=== PATIENT | male | born 1955 | race Caucasian/White ===

== ENCOUNTER 2021-01-13 19:56 | Inpatient (IN) | payer MEDICARE, OTHER ==
[2021-01-13 20:52] LABS: #Basophils 0.2 10x3/uL (0.0-0.2); #Eosinphils 0.4 10x3/uL (0.0-0.5); #Monocytes 0.9 10x3/uL (0.0-1.1); #Neutrophils 5.7 10x3/uL (1.5-8.4); %Basophils 1.6 % (0.0-2.0); %Eosinophils 3.2 % (0.0-6.0); %Monocytes 8.7 % (0.0-10.0); %Neutrophils 53.2 % (40.0-75.0); Hemoglobin 15.5 g/dL (13.5-17.5); Mean Corpuscular HGB CONC 32.3 g/dL (32.0-36.0); Mean Corpuscular Hemoglobin 30.5 pg (27.0-33.0); Mean Corpuscular Volume 94.5 fl (81.2-95.1); Mean Platelet Volume 10.1 fl (7.4-10.4); Platelet Count 225 10x3/uL (150-450); RBC Distribution Width 12.7 % (11.5-14.5); Red Blood Cell (RBC) Count 5.08 10x6/uL (4.32-5.72); White Blood Cell (WBC) Count 10.8 10x3/uL (3.5-10.5)
[2021-01-13 21:02] LABS: ALT (SGPT) 34 U/L (8-55); AST (SGOT) 28 U/L (5-34); Albumin 4.2 g/dL (3.4-4.8); Alkaline Phosphatase 65 U/L (40-110); Anion Gap 13 mmol/L (10-20); BUN (Urea Nitrogen) 17 mg/dL (8.4-25.7); Bilirubin, Total 1.6 mg/dL (0.2-1.2); Calc. Creatinine Clearance 0 mL/min (70-130); Carbon Dioxide 28 mmol/L (23-31); Chloride 106 mmol/L (98-107); Globulin 2.6 g/dL (2.4-3.5); Glucose 121 mg/dL (80-115); Potassium 3.9 mmol/L (3.5-5.1); Protein, Total 6.8 g/dL (5.8-8.1); Sodium 143 mmol/L (136-145)
[2021-01-13 21:22] LABS: CKMB 2.9 ng/mL (0-6.6)
[2021-01-13] MEDS ORDERED: Nitroglycerin 0.4 MG TAB (25 Tab Bottle) SL PRN (22:43)
[2021-01-13] MEDS ORDERED: Acetaminophen 325 MG TAB PO PRN (22:43)
[2021-01-13] MEDS ORDERED: Guaifenesin DM 100-10/5 ML UDCUP PO PRN (22:43)
[2021-01-13] MEDS ORDERED: Zolpidem Tartrate 5 MG TAB PO PRN (22:43)
[2021-01-13] MEDS ORDERED: Ondansetron PF 4 MG/2 ML Vial IVP PRN (22:43)
[2021-01-13] MEDS ORDERED: HYDROcodone/Acetaminophen 5/325 mg Tablet PO PRN (22:43)
[2021-01-13] MEDS ORDERED: Calcium Carbonate 500 MG ChewTAB PO PRN (22:43)
[2021-01-13] MEDS ORDERED: Senokot S 8.6-50 MG TAB PO PRN (22:43)
[2021-01-13] MEDS ORDERED: Enoxaparin Sodium 100 MG/ML SYRINGE ONE (22:46)
[2021-01-13] MEDS ORDERED: Nitroglycerin 2% Ointment 1 INCH/1 GM Packet TOP SCH (23:45)
[2021-01-13] MEDS ORDERED: Aspirin Chewable 81 MG TAB PO SCH (23:45)
[2021-01-13] MEDS ORDERED: Metoprolol Tartrate 25 MG TAB PO SCH (23:45)
[2021-01-13 23:56] LABS: Troponin I 0.322 ng/mL (< 0.028)
[2021-01-14 02:00] VITALS: BMI 29.1
[2021-01-14] MEDS: Sodium Chloride 0.9% 1,000 ML IV SCH ×2 (02:30→18:12)
[2021-01-14] MEDS ORDERED: Aspirin Chewable 81 MG TAB ONE (02:37)
[2021-01-14 03:18] LABS: SARS-CoV-2 NAA Rapid Test Not Detected (NotDetected)
[2021-01-14 05:21] LABS: #Basophils 0.1 10x3/uL (0.0-0.2); #Eosinphils 0.3 10x3/uL (0.0-0.5); #Monocytes 0.8 10x3/uL (0.0-1.1); #Neutrophils 5.1 10x3/uL (1.5-8.4); %Basophils 1.4 % (0.0-2.0); %Eosinophils 2.9 % (0.0-6.0); %Lymphocytes 35.4 % (18.0-47.0); %Monocytes 8.1 % (0.0-10.0); %Neutrophils 52.1 % (40.0-75.0); Hemoglobin 14.5 g/dL (13.5-17.5); Mean Corpuscular HGB CONC 33.3 g/dL (32.0-36.0); Mean Corpuscular Hemoglobin 30.5 pg (27.0-33.0); Mean Corpuscular Volume 91.8 fl (81.2-95.1); Mean Platelet Volume 9.6 fl (7.4-10.4); Platelet Count 182 10x3/uL (150-450); RBC Distribution Width 12.7 % (11.5-14.5); Red Blood Cell (RBC) Count 4.75 10x6/uL (4.32-5.72); White Blood Cell (WBC) Count 9.7 10x3/uL (3.5-10.5)
[2021-01-14 05:38] LABS: Anion Gap 9 mmol/L (10-20); BUN (Urea Nitrogen) 19 mg/dL (8.4-25.7); Calc. Creatinine Clearance 121 mL/min (70-130); Calcium 8.6 mg/dL (7.8-10.44); Carbon Dioxide 30 mmol/L (23-31); Cardiac Risk 4.1 (Less than 4.5); Chloride 108 mmol/L (98-107); Cholesterol 161 mg/dl (< 200 Desired); Glucose 100 mg/dL (80-115); HDL Cholesterol 39 mg/dL (>60 Neg Risk); LDL Cholesterol, Calculated 101 mg/dL; Potassium 3.7 mmol/L (3.5-5.1); Sodium 143 mmol/L (136-145); Triglycerides 105 mg/dL (Less than 150)
[2021-01-14 05:44] LABS: Troponin I 0.492 ng/mL (< 0.028)
[2021-01-14] MEDS: Mometasone 200 MCG/Formoterol 5 MCG 120 PUFF INHALER INH SCH ×2 (07:55→20:11)
[2021-01-14 08:42] LABS: Troponin I 0.554 ng/mL (< 0.028)
[2021-01-14] MEDS ORDERED: Communication Order-Pharmacy FS SCH (08:45)
[2021-01-14] MEDS ORDERED: Metoprolol Tartrate 25 MG TAB PO SCH (09:00)
[2021-01-14] MEDS ORDERED: Enoxaparin Sodium 100 MG/ML SYRINGE SC SCH (09:00)
[2021-01-14 09:30] LABS: PTT 29.1 sec (22.0-33.0); Prothrombin Time 11.2 sec (9.5-12.1)
[2021-01-14] MEDS: Lisinopril 2.5 MG TAB PO SCH (10:04)
[2021-01-14] MEDS: Famotidine/PF 20 mg/2ml Vial SLOW IVP SCH ×2 (10:04→21:46)
[2021-01-14] MEDS: Aspirin 81 mg Enteric Coated Tablet PO SCH (10:04)
[2021-01-14] MEDS ORDERED: Nitroglycerin 50 MG/250 ML BOT 250 ML ONE (10:32)
[2021-01-14] MEDS ORDERED: Midazolam HCl 2 mg/2 ml Vial ONE (10:33)
[2021-01-14] MEDS ORDERED: Verapamil 5 MG/2 ML VIAL ONE (10:33)
[2021-01-14] MEDS ORDERED: Heparin 10,000 UNITS/ 10 ML VIAL ONE (10:33)
[2021-01-14] MEDS ORDERED: Lidocaine 1% PF 5 ML VIAL ONE (10:34)
[2021-01-14] MEDS ORDERED: Fentanyl 100 MCG/2 ML VIAL ONE (10:35)
[2021-01-14] MEDS ORDERED: HEPARIN 1000 UNIT/500 ML ONE ×2 (10:35→11:47)
[2021-01-14] MEDS ORDERED: TICAGRELOR 90 MG TABLET ONE (11:14)
[2021-01-14] MEDS ORDERED: Adenosine 6 MG/2 ML VIAL ONE (11:14)
[2021-01-14] MEDS ORDERED: Heparin 1,000 UNITS/ML VIAL ONE (11:30)
[2021-01-14] MEDS ORDERED: Sodium Chloride 0.9% 200 ML IV PRN (11:54)
[2021-01-14] MEDS ORDERED: Acetaminophen/Codeine 30-300mg Tablet PO PRN ×2 (11:54)
[2021-01-14] MEDS ORDERED: Nitroglycerin 0.4 MG TAB (25 Tab Bottle) SL PRN (11:54)
[2021-01-14 13:40] LABS: Hemoglobin A1c 5.1 % (4.0-6.0)
[2021-01-14] MEDS ORDERED: Rosuvastatin 20 MG TAB PO SCH (21:00)
[2021-01-14] MEDS ORDERED: Atorvastatin Calcium 40 MG TAB PO SCH (21:00)
[2021-01-14] MEDS: TICAGRELOR 90 MG TABLET PO SCH (21:46)
[2021-01-15 05:13] LABS: #Basophils 0.1 10x3/uL (0.0-0.2); #Eosinphils 0.2 10x3/uL (0.0-0.5); #Monocytes 0.9 10x3/uL (0.0-1.1); %Basophils 1.2 % (0.0-2.0); %Eosinophils 2.4 % (0.0-6.0); %Lymphocytes 20.2 % (18.0-47.0); %Monocytes 9.5 % (0.0-10.0); %Neutrophils 66.3 % (40.0-75.0); Hemoglobin 14.2 g/dL (13.5-17.5); Mean Corpuscular HGB CONC 32.9 g/dL (32.0-36.0); Mean Corpuscular Hemoglobin 30.7 pg (27.0-33.0); Mean Corpuscular Volume 93.5 fl (81.2-95.1); Mean Platelet Volume 10.2 fl (7.4-10.4); Platelet Count 184 10x3/uL (150-450); RBC Distribution Width 12.6 % (11.5-14.5); Red Blood Cell (RBC) Count 4.62 10x6/uL (4.32-5.72)
[2021-01-15 05:29] LABS: Anion Gap 11 mmol/L (10-20); BUN (Urea Nitrogen) 10 mg/dL (8.4-25.7); Calc. Creatinine Clearance 118 mL/min (70-130); Calcium 8.5 mg/dL (7.8-10.44); Carbon Dioxide 29 mmol/L (23-31); Chloride 107 mmol/L (98-107); Glucose 93 mg/dL (80-115); Magnesium 2.1 mg/dL (1.6-2.6); Potassium 3.8 mmol/L (3.5-5.1); Sodium 143 mmol/L (136-145)
[2021-01-15] MEDS: Mometasone 200 MCG/Formoterol 5 MCG 120 PUFF INHALER INH SCH (08:46)
[2021-01-15] MEDS: Aspirin 81 mg Enteric Coated Tablet PO SCH (09:25)
[2021-01-15] MEDS: Lisinopril 2.5 MG TAB PO SCH (09:25)
[2021-01-15] MEDS: TICAGRELOR 90 MG TABLET PO SCH (09:26)
[2021-01-15] MEDS: Famotidine/PF 20 mg/2ml Vial SLOW IVP SCH (09:27)
[2021-01-15 09:31] VITALS: BP 133/79; TEMP 97.1
== END 2021-01-15 10:35 | disposition home or self-care (01) | DRG 247 ==
LOC: CSHERS 19:56 → CSHTELE 19:57
PROVIDERS: ADMIT Student in an Organized Health Care Education/Training Program; ATTEND Nurse Practitioner Family
PROC: 027036Z Dilation of Coronary Artery, One Artery with Three Drug-eluting Intraluminal Devices, Percutaneous Approach (ICD-10-PCS; principal; 2021-01-14)
PROC: 4A023N7 Measurement of Cardiac Sampling and Pressure, Left Heart, Percutaneous Approach (ICD-10-PCS; 2021-01-14)
PROC: B2111ZZ Fluoroscopy of Multiple Coronary Arteries using Low Osmolar Contrast (ICD-10-PCS; 2021-01-14)
PROC: B2151ZZ Fluoroscopy of Left Heart using Low Osmolar Contrast (ICD-10-PCS; 2021-01-14)
DX: I21.4 Non-ST elevation (NSTEMI) myocardial infarction (principal); J44.9 Chronic obstructive pulmonary disease, unspecified; E78.5 Hyperlipidemia, unspecified; I45.10 Unspecified right bundle-branch block; I44.4 Left anterior fascicular block; N18.2 Chronic kidney disease, stage 2 (mild); R73.9 Hyperglycemia, unspecified; I16.0 Hypertensive urgency; I12.9 Hypertensive chronic kidney disease with stage 1 through stage 4 chronic kidney disease, or unspecified chronic kidney disease; I25.10 Atherosclerotic heart disease of native coronary artery without angina pectoris; Z20.822 Contact with and (suspected) exposure to COVID-19; Z90.49 Acquired absence of other specified parts of digestive tract; Z87.891 Personal history of nicotine dependence; Z88.8 Allergy status to other drugs, medicaments and biological substances; Z79.899 Other long term (current) drug therapy
CPT/HCPCS: 36415; 71045; 80048; 80053; 80061; 82553; 83036; 83735; 84484; 85025; 85347; 85610; 85730; 92928; 92978; 93005; 93306; 93458; 94664; 97139; 99152; 99153; C1753; C1874; C1887; C9600; J0153; J1644; J1650; J2250; J3010; J7050; S0028; U0002

== ENCOUNTER 2021-01-19 05:42 | Observation (INO) | payer MEDICARE, OTHER ==
[2021-01-19 06:16] LABS: #Basophils 0.1 10x3/uL (0.0-0.2); #Eosinphils 0.3 10x3/uL (0.0-0.5); #Monocytes 0.8 10x3/uL (0.0-1.1); #Neutrophils 5.4 10x3/uL (1.5-8.4); %Basophils 1.1 % (0.0-2.0); %Eosinophils 3.1 % (0.0-6.0); %Lymphocytes 27.4 % (18.0-47.0); %Monocytes 9.1 % (0.0-10.0); %Neutrophils 59.1 % (40.0-75.0); Hemoglobin 15.9 g/dL (13.5-17.5); Mean Corpuscular HGB CONC 33.3 g/dL (32.0-36.0); Mean Corpuscular Hemoglobin 30.6 pg (27.0-33.0); Mean Corpuscular Volume 91.9 fl (81.2-95.1); Platelet Count 223 10x3/uL (150-450); RBC Distribution Width 12.4 % (11.5-14.5); Red Blood Cell (RBC) Count 5.19 10x6/uL (4.32-5.72); White Blood Cell (WBC) Count 9.1 10x3/uL (3.5-10.5)
[2021-01-19] MEDS ORDERED: Acetaminophen 500 MG TAB ONE (06:20)
[2021-01-19 06:31] LABS: ALT (SGPT) 25 U/L (8-55); AST (SGOT) 21 U/L (5-34); Albumin 4.3 g/dL (3.4-4.8); Alkaline Phosphatase 65 U/L (40-110); Anion Gap 14 mmol/L (10-20); BUN (Urea Nitrogen) 15 mg/dL (8.4-25.7); Bilirubin, Total 2.2 mg/dL (0.2-1.2); Calc. Creatinine Clearance 0 mL/min (70-130); Carbon Dioxide 27 mmol/L (23-31); Chloride 107 mmol/L (98-107); Globulin 2.4 g/dL (2.4-3.5); Glucose 109 mg/dL (80-115); Protein, Total 6.7 g/dL (5.8-8.1); Sodium 144 mmol/L (136-145)
[2021-01-19 06:35] LABS: PTT 27.1 sec (22.0-33.0); Prothrombin Time 10.9 sec (9.5-12.1)
[2021-01-19 06:56] LABS: CKMB 2.3 ng/mL (0-6.6)
[2021-01-19] MEDS ORDERED: Senokot S 8.6-50 MG TAB PO PRN (08:15)
[2021-01-19] MEDS ORDERED: Calcium Carbonate 500 MG ChewTAB PO PRN (08:15)
[2021-01-19] MEDS ORDERED: Ondansetron PF 4 MG/2 ML Vial IVP PRN (08:15)
[2021-01-19] MEDS ORDERED: HYDROcodone/Acetaminophen 5/325 mg Tablet PO PRN (08:15)
[2021-01-19] MEDS ORDERED: HYDROcodone/Acetaminophen 7.5/325 mg Tablet PO PRN (08:15)
[2021-01-19] MEDS ORDERED: Communication Order-Pharmacy FS PRN (08:15)
[2021-01-19] MEDS ORDERED: Loperamide HCl 2 MG CAP PO PRN (08:15)
[2021-01-19] MEDS ORDERED: Zolpidem Tartrate 5 MG TAB PO PRN (08:15)
[2021-01-19] MEDS ORDERED: Acetaminophen 325 MG TAB PO PRN (08:15)
[2021-01-19] MEDS ORDERED: Ventolin HFA Inhaler 60 PUFF INHALER INH PRN (08:18)
[2021-01-19] MEDS ORDERED: Mometasone/Formoterol 60 PUFF AER INH SCH (09:00)
[2021-01-19] MEDS: Sodium Chloride 0.9% 1,000 ML IV SCH ×2 (09:51→16:30)
[2021-01-19] MEDS: Famotidine 20 MG TAB PO SCH ×2 (09:56→20:49)
[2021-01-19] MEDS: TICAGRELOR 90 MG TABLET PO SCH ×2 (09:56→20:50)
[2021-01-19] MEDS: Aspirin 81 mg Enteric Coated Tablet PO SCH (09:57)
[2021-01-19] MEDS: Lisinopril 2.5 MG TAB PO SCH (09:57)
[2021-01-19 10:12] VITALS: BMI 28.5
[2021-01-19] MEDS ORDERED: Nitroglycerin 50 MG/250 ML BOT 250 ML ONE (12:13)
[2021-01-19] MEDS ORDERED: Heparin 10,000 UNITS/ 10 ML VIAL ONE (12:13)
[2021-01-19] MEDS ORDERED: Ondansetron PF 4 MG/2 ML Vial ONE (12:15)
[2021-01-19] MEDS ORDERED: Atropine Sulfate 0.4 mg/1 ml Vial ONE (12:16)
[2021-01-19] MEDS ORDERED: Lidocaine 1% PF 5 ML VIAL ONE (12:16)
[2021-01-19] MEDS ORDERED: Fentanyl 100 MCG/2 ML VIAL ONE ×2 (12:16→16:18)
[2021-01-19] MEDS ORDERED: Verapamil 5 MG/2 ML VIAL ONE (12:16)
[2021-01-19] MEDS ORDERED: Midazolam HCl 2 mg/2 ml Vial ONE ×2 (12:17→16:18)
[2021-01-19] MEDS ORDERED: Sodium Chloride 0.9% 200 ML IV PRN (16:01)
[2021-01-19] MEDS ORDERED: Acetaminophen/Codeine 30-300mg Tablet PO PRN ×2 (16:01)
[2021-01-19] MEDS ORDERED: Nitroglycerin 0.4 MG TAB (25 Tab Bottle) SL PRN (16:01)
[2021-01-19] MEDS ORDERED: Rosuvastatin 20 MG TAB PO SCH (21:00)
[2021-01-20 04:19] VITALS: TEMP 97.1
[2021-01-20] MEDS: Sodium Chloride 0.9% 1,000 ML IV SCH ×2 (04:41→08:36)
[2021-01-20] MEDS ORDERED: Mometasone/Formoterol 60 PUFF AER INH SCH (07:00)
[2021-01-20 07:38] VITALS: BP 117/87
[2021-01-20] MEDS: Aspirin 81 mg Enteric Coated Tablet PO SCH (08:53)
[2021-01-20] MEDS: Lisinopril 2.5 MG TAB PO SCH (08:53)
[2021-01-20] MEDS: Famotidine 20 MG TAB PO SCH (08:53)
[2021-01-20] MEDS ORDERED: Clopidogrel Bisulfate 75 MG TAB PO SCH (09:00)
== END 2021-01-20 10:19 | disposition home or self-care (01) ==
LOC: CSHERS 05:42 → CSHTELE 08:37
PROVIDERS: ADMIT Family Medicine; ATTEND Family Medicine
DX: I21.4 Non-ST elevation (NSTEMI) myocardial infarction (principal); I25.10 Atherosclerotic heart disease of native coronary artery without angina pectoris; Z95.5 Presence of coronary angioplasty implant and graft; Z79.899 Other long term (current) drug therapy; Z87.891 Personal history of nicotine dependence; Z79.82 Long term (current) use of aspirin; J44.9 Chronic obstructive pulmonary disease, unspecified; E78.5 Hyperlipidemia, unspecified
CPT/HCPCS: 71045; 72170; 80053; 82553; 83880; 84484; 85025; 85347; 85610; 85730; 92978; 93005; 93454; 94760; 97139; 99285; C1725; C1753; C1874 ×2; C1887; C9600; G0378 ×2; 92928; 99152; 99153; J0461; J1644; J2250; J2405; J3010; J7050

== ENCOUNTER 2021-10-09 13:19 | Outpatient (CLI) | payer MEDICARE, OTHER | END 2021-10-09 13:20 | disposition home or self-care (01) | LOC: CSHCT 13:19 | PROVIDERS: ATTEND Family Medicine | DX: R51.9 Headache, unspecified (principal); J32.9 Chronic sinusitis, unspecified ==

== ENCOUNTER 2021-12-25 12:22 | Emergency (ER) | payer MEDICARE, OTHER | END 2021-12-25 13:33 | disposition home or self-care (01) | LOC: CSHERS 12:22 | DX: S60.222A Contusion of left hand, initial encounter (principal); J44.9 Chronic obstructive pulmonary disease, unspecified; I25.10 Atherosclerotic heart disease of native coronary artery without angina pectoris; I25.2 Old myocardial infarction; Z87.892 Personal history of anaphylaxis; W11.XXXA Fall on and from ladder, initial encounter ==

== ENCOUNTER 2022-08-03 12:44 | Outpatient (CLI) | payer MEDICARE, OTHER | END 2022-08-03 12:45 | disposition home or self-care (01) | LOC: CSHCT 12:44 | PROVIDERS: ATTEND Student in an Organized Health Care Education/Training Program | DX: Z12.2 Encounter for screening for malignant neoplasm of respiratory organs (principal); Z87.891 Personal history of nicotine dependence; J43.9 Emphysema, unspecified; J98.4 Other disorders of lung; I25.10 Atherosclerotic heart disease of native coronary artery without angina pectoris; I25.84 Coronary atherosclerosis due to calcified coronary lesion; I70.0 Atherosclerosis of aorta | CPT/HCPCS: 71271 ==

== ENCOUNTER 2023-05-15 07:01 | Emergency (ER) | payer MEDICARE, OTHER ==
[2023-05-15] MEDS ORDERED: methylPREDNISolone Sod Succ/PF 125 MG/2 ML VIAL ONE (07:50)
[2023-05-15] MEDS ORDERED: Ipratropium/Albuterol 3 ML NEB ONE (07:58)
[2023-05-15] MEDS ORDERED: Albuterol 2.5 MG (3 mL) NEB ONE ×2 (07:58→08:42)
[2023-05-15 08:09] LABS: ALT (SGPT) 38 U/L (8-55); AST (SGOT) 28 U/L (5-34); Albumin 3.8 g/dL (3.4-4.8); Alkaline Phosphatase 58 U/L (40-110); Anion Gap 15 mmol/L (10-20); BUN (Urea Nitrogen) 24 mg/dL (8.4-25.7); Bilirubin, Total 1.5 mg/dL (0.2-1.2); Calc. Creatinine Clearance 0 mL/min (70-130); Calcium 8.9 mg/dL (7.8-10.44); Carbon Dioxide 25 mmol/L (23-31); Chloride 108 mmol/L (98-107); Estimated GFR 93; Globulin 2.7 g/dL (2.4-3.5); Glucose 103 mg/dL (80-115); Protein, Total 6.5 g/dL (5.8-8.1); Sodium 144 mmol/L (136-145)
[2023-05-15 08:10] LABS: Troponin I Less than 0.010 ng/mL (< 0.028)
[2023-05-15 08:18] LABS: #Basophils 0.18 10x3/uL (0.0-0.2); #Eosinphils 0.27 10x3/uL (0.0-0.5); #Monocytes 1.28 10x3/uL (0.0-1.1); #Neutrophils 7.38 10x3/uL (1.5-8.4); %Basophils 1.7 % (0.0-2.0); %Eosinophils 2.6 % (0.0-6.0); %Lymphocytes 13.2 % (18.0-47.0); %Monocytes 12.1 % (0.0-10.0); %Neutrophils 69.9 % (40.0-75.0); Hematocrit 49.9 % (38.8-50.0); Hemoglobin 17.1 g/dL (13.5-17.5); Mean Corpuscular HGB CONC 34.3 g/dL (32.0-36.0); Mean Corpuscular Hemoglobin 31.2 pg (27.0-33.0); Mean Corpuscular Volume 91.1 fl (81.2-95.1); Mean Platelet Volume 9.9 fl (7.4-10.4); Platelet Count 202 10x3/uL (150-450); RBC Distribution Width 12.8 % (11.5-14.5); Red Blood Cell (RBC) Count 5.48 10x6/uL (4.32-5.72); White Blood Cell (WBC) Count 10.6 10x3/uL (3.5-10.5)
[2023-05-15 08:40] LABS: Actual Bicarbonate (HCO3v) 21.2 mEq/L (22-28); Analyzer IN Cardio CS ER; Base Excess -3.8 mEq/L (-2 - +2); Chloride (VBG) 104 mmol/L (98-106); Hematocrit-VBG 52 % (42.0-52.0); Hemoglobin (Hb) 17.8 g/dL (12.6-17.4); Potassium (VBG) 3.66 mmol/L (3.70-5.30); Puncture Site Other Site; RapidComm Collect By LAb; Sodium 142 mmol/L (133-146); pH (venous) 7.355 (7.32-7.43)
== END 2023-05-15 09:49 | disposition home or self-care (01) ==
LOC: CSHERS 07:01
DX: J44.1 Chronic obstructive pulmonary disease with (acute) exacerbation (principal); J44.9 Chronic obstructive pulmonary disease, unspecified; I25.10 Atherosclerotic heart disease of native coronary artery without angina pectoris; Z79.899 Other long term (current) drug therapy; Z55.6 Problems related to health literacy; Z87.891 Personal history of nicotine dependence
CPT/HCPCS: 36415; 71045; 80053; 82805; 83880; 84484; 85025; 93005; 94640; 96374; J2930; J7611; J7620

== ENCOUNTER 2023-08-05 14:40 | Outpatient (CLI) | payer MEDICARE, OTHER | END 2023-08-05 14:41 | disposition home or self-care (01) | LOC: CSHRAD 14:40 | PROVIDERS: ATTEND Student in an Organized Health Care Education/Training Program | DX: Z12.2 Encounter for screening for malignant neoplasm of respiratory organs (principal); Z87.891 Personal history of nicotine dependence; R91.8 Other nonspecific abnormal finding of lung field; I25.10 Atherosclerotic heart disease of native coronary artery without angina pectoris; I25.84 Coronary atherosclerosis due to calcified coronary lesion; R59.0 Localized enlarged lymph nodes | CPT/HCPCS: 71271 ==